=== PATIENT | female | born 2000 | race Caucasian/White ===

== ENCOUNTER 2019-08-04 09:57 | Emergency (ER) | payer OTHER, SELFPAY ==
[2019-08-04] VITALS (15 sets, daily range): BP systolic 100–114; BP diastolic 73–89; PULSE 69–90; RESP 12–21; TEMP 36.7; O2SAT 94–100
--- NOTE | ~2019-08-04 | XR_ITS ---
EXAMINATION: XR chest 2V EXAM DATE: 08/04/2019 10:53 INDICATION: Syncope. TECHNIQUE: Frontal and lateral projections of the chest obtained and reviewed. There is no prior hever dy for comparison. FINDINGS: The lungs are clear. There are no pleural effusions. The cardiomediastinal silhouette is within normal limits. There is no pneumothorax suspected. The bones and soft tissues are unremarkab le. IMPRESSION: No acute cardiopulmonary findings. Reviewed, dictated and finalized at location B.
--- NOTE | ~2019-08-04 | US_ITS ---
EXAMINATION: US venous doppler LE RT DATE: 08/04/2019 14:45 INDICATION: Right lower limb pain. Elevated d-dimer. TECHNIQUE: Grayscale ultrasound images without and with compression and Doppler ultrasound images of the right lower extremity veins were obtained. COMPARISON: None. FINDINGS: The visualized portions of right common femoral vein, profunda (deep) femoral vein, femoral vein, pop liteal vein, peroneal trunk, posterior tibial veins, peroneal veins, gastrocnemius vein and greater s aphenous vein outflow are patent. IMPRESSION: 1. No deep venous thrombosis in the right lower limb. Reviewed, dictated and finalized at location A.
--- NOTE | ~2019-08-04 | CT_ITS ---
EXAMINATION: CTA chest PE protocol EXAM DATE: 08/04/2019 12:59 INDICATION: Elevated d-dimer, syncope. TECHNIQUE: Spiral CTA of the chest (pulmonary arteries) was performed with 100 cc Omnipaque 350 intr avenous contrast injection. Images were acquired during the pulmonary arterial phase. Coronal maxi mum intensity projection 3D-reconstructions were created by the technologist on dedicated workstation . Axial, coronal and sagittal reformatted images were reviewed. The dose-length product (DLP) for t his examination was 188.45 mGy-cm. The exposure was tailored according to patient size (auto mA exp osure control), and iterative reconstruction (ASIR) was used as additional dose reduction technique. There is no prior study for comparison. FINDINGS: Pulmonary arteries are well opacified and without intraluminal filling defects. No thora cic aortic dissection. Right basilar granuloma. There are no pleural or pericardial effusions. Tr acheobronchial tree is patent. There is no mediastinal, hilar or axillary lymphadenopathy. There is no pneumothorax. Heart normal in size. No evidence of coronary arterial calcification. Upper abdomen is unremarkable. There is thoracic spondylosis without osteoblastic or osteolytic lesions i dentified. IMPRESSION: 1. Normal CT pulmonary examination. Reviewed, dictated and finalized at location B.
--- NOTE | ~2019-08-04 | CT_ITS ---
EXAMINATION: CT brain wo con EXAM DATE: 08/04/2019 10:45 INDICATION: Syncope, confusion, frontal headache, lethargy. TECHNIQUE: Spiral CT of the head was performed without contrast. Axial, coronal and sagittal images were reviewed. The dose-length product (DLP) for this examination was 605.33 mGy-cm. The exposure w as tailored according to patient size, and iterative reconstruction (ASIR) was used as additional dos e reduction technique. There is no prior study for comparison. FINDINGS: There is no acute intraparenchymal hemorrhage. No evidence of intraparenchymal brain mass lesion. No evidence of acute infarction. There is no mass effect or midline shift. The ventricles are normal in size. There are no extra-axial collections. There are no acute calvarial fractures. T he orbits are unremarkable. Soft tissue is unremarkable. There is minimal ethmoid mucoperiosteal th ickening. IMPRESSION: 1. Unremarkable head CT examination. Reviewed, dictated and finalized at location B.
--- NOTE | 2019-08-04 10:20 | ECG_ITS ---
Measurements Intervals [place] Rate: 83 P: 68 TN: 163 QRS: 47 QRSD: 105 T: 21 QT: 365 QTc: 429 Interpretive Statements SINUS RHYTHM RSR' IN V1 OR V2, CONSIDER RIGHT VENTRICULAR HYPERTROPHY OR RIGHT VCD MINIMAL Q WAVES- HIGH LATERAL LEADS BORDERLINE T WAVE ABNORMALITY- INFERIOR LEADS BORDERLINE ECG Electronically Signed On 08-04-2019 10:28:01 CDT by Tawanda Pope D.O.
--- NOTE | 2019-08-04 10:30 | ED.SYNCOPE ---
HPI - Syncope General Chief Complaint: Syncope <BONNY Germain Last Filed: 08/04/19 14:23> Stated Complaint: near syncope <BONNY Germain Last Filed: 08/04/19 14:23> Time Seen by Provider: 08/04/19 10:09 <Cornelia Eng PA-C - Last Filed: 08/04/19 14:23> Source: patient and family <BONNY Germain Last Filed: 08/04/19 14:23> Mode of arrival: EMS <BONNY Germain Last Filed: 08/04/19 14:23> Limitations: clinical condition <BONNY Germain Last Filed: 08/04/19 14:23> History of Present Illness HPI narrative: This is a 18 year old female that presents to the ER for syncopal episode today. Patient does not remember episode, so mother gives history. Per mom patient was at work. She called her mother noting that she had a headache. Mom was told that patient was confused and then had a syncopal episode. Do not report any seizure-like activity. 911 was called and patient presents via EMS. Currently patient's only complaint is a headache. Mom reports she had a similar episode 6 weeks ago where she had a headache and was confused. This resolved after some vuoc-wxi-frukzof pain medication. Patient denies fever, chest pain, shortness of breath, abdominal pain, vomiting, dysuria. <Cornelia Eng PA-C - Last Filed: 08/04/19 14:23> Related Data Home Medications: Home Medications Medication Instructions Recorded Confirmed escitalopram oxalate mg 08/04/19 norgestimate-ethinyl estradiol tablet 08/04/19 [Sprintec (28)] <BONNY Germain Last Filed: 08/04/19 14:23> Allergies/Adverse Reactions: Allergies Allergy/AdvReac Type Severity Reaction Status Date / Time No Known Allergies Allergy Mild Verified 08/04/19 10:26 <BONNY Germain Last Filed: 08/04/19 14:23> Review of Systems Review of Systems: Narrative: CONSTITUTIONAL: Denies fever CARDIOVASCULAR: Denies chest pain RESPIRATORY: Denies dyspnea. GASTROINTESTINAL: Denies abdominal pain, nausea, vomiting GENITOURINARY: Denies dysuria or hematuria. NEUROLOGIC: Reports headache and weakness. Denies numbness <Cornelia Eng PA-C - Last Filed: 08/04/19 14:23> All systems reviewed & are unremarkable except as noted in HPI and below <Cornelia Eng PA-C - Last Filed: 08/04/19 14:23> PMFSH Past Medical History Medical History: Medical History (Updated 08/04/19 @ 14:19 by Cornelia Eng PA-C) History of anxiety History of depression <Cornelia Eng PA-C - Last Filed: 08/04/19 14:23> Surgical History Surgical History: Surgical History (Updated 08/04/19 @ 10:31 by Cornelia Eng PA-C) History of tonsillectomy <Cornelia Eng PA-C - Last Filed: 08/04/19 14:23> Social History Social History: Social History (Updated 08/04/19 @ 10:31 by Cornelia Eng PA-C) Smoking status: Never smoker Substance use: never Gender identity (if verbalized by the patient): Female <Cornelia Eng PA-C - Last Filed: 08/04/19 14:23> Exam Narrative: Exam Narrative: GENERAL: Drowsy, well-nourished, and in no acute distress. HEAD: Normocephalic, atraumatic. EYES: PERRLA and EOMI. ENT: Nares clear, no rhinorrhea or epistaxis. Mucous membranes moist. Oropharynx without tonsillar hypertrophy exudate or other lesions. Bilateral TMs pearly jamil non-bulging NECK: Supple. No adenopathy or masses. CHEST: Clear to auscultation. No respiratory distress. No wheezes rales or rhonchi HEART: Regular rate and rhythm. No murmur heard. Normal peripheral pulses. ABDOMEN: Soft, nontender, nondistended, normal active bowel sounds. EXTREMITIES: Normal range of motion. No edema. Strength equal in bilateral upper and lower extremities (4/5). Normal [id number] SKIN: Warm, dry, no rash. NEURO: Drowsy. No focal deficits. Oriented x3. Cranial nerves II through XII grossly intact PSYCH: Normal mood and affect <Cornelia Eng PA-C - Last Filed: 08/04/19
--- NOTE | 2019-08-04 10:40 | PC.NURSE ---
pt gone from room, unable to obtain blood
[2019-08-04] MEDS: KETOROLAC 30 MG/ML VIAL (*BKC) IV PUSH (10:59)
[2019-08-04] MEDS: SODIUM CHLORIDE 0.9% IV 1,000 ML 999 ML IV CONT ×2 (10:59→13:42)
[2019-08-04 12:04] LABS: D Dimer 0.58 ug/mL (<0.48)
[2019-08-04 12:07] LABS: Alanine Aminotransferase 17 U/L (4-35); Albumin Level 4.1 g/dL (3.7-5.6); Alkaline Phosphatase 62 U/L (45-116); Aspartate Amino Transferase 20 U/L (14-36); Bilirubin,Total 0.6 mg/dL (0.2-1.3); Blood Urea Nitrogen 9 mg/dL (8-21); Calcium 8.8 mg/dL (8.9-10.7); Carbon Dioxide 23 mmol/L (22-30); Chloride 108 mmol/L (98-107); Estimated Glomerular Filt Rate > 60; Glucose 94 mg/dL (65-105); Potassium 4.1 mmol/L (3.4-5.0); Sodium 137 mmol/L (134-143); Troponin I < 0.012 ng/mL (0.000-0.034)
[2019-08-04 12:07] LABS: Amphetamine Screen Urine Negative (Negative); Barbiturate Screen Urine Negative (Negative); Benzodiazepines Screen Urine Negative (Negative); Cannabinoid Screen Urine Negative (Negative); Cocaine Screen Urine Negative (Negative); Methadone Screen Urine Negative (Negative); Opiate Screen Urine Negative (Negative); Phencyclidine Screen Urine Negative (Negative)
[2019-08-04 12:10] LABS: Add Urine Microscopic? YES; Amorphous Sediment Urine Few; Appearance Urine Clear (Clear); Bacteria Urine Trace /hpf; Bilirubin Urine Negative (Negative); Blood Urine Negative (Negative); Color Urine Yellow (Yellow); Glucose Urine UA Negative (Negative); Ketones Urine Negative (Negative); Leukocyte Esterase Ur Trace LEU/UL (Negative); Mucus Urine Few /lpf; Nitrate Urine Negative (Negative); Protein Urine 1+ mg/dL (Negative); Squamous Epithelial Cell Urine Many /hpf (Few)
[2019-08-04 12:14] LABS: Basophils Absolute Auto 0.1 K/mm3 (0.0-0.1); Basophils Percent Auto 0.7 % (0.2-1.2); Eosinophils Absolute Auto 0.2 K/mm3 (0-0.3); Eosinophils Percent Auto 2.2 % (0-4.4); Hematocrit 40.6 % (37.0-47.0); Hemoglobin 13.4 g/dL (12.0-15.0); Immature Granulocyte Absolute 0.04 K/mm3 (0.00-0.031); Immature Granulocyte Percent A 0.5 % (0-0.5); Lymphocytes Absolute Auto 1.29 K/mm3 (0.9-3.2); Lymphocytes Percent Auto 16.9 % (18.3-44.2); Mean Corpuscular Hemoglobin 28.6 pg (26-34); Mean Corpuscular Volume 86.8 fl (80-100); Mean Platelet Volume 9.9 fl (7.4-10.4); Monocytes Absolute Auto 0.6 K/mm3 (0.1-0.6); Neutrophils Absolute Auto 5.5 K/mm3 (1.3-6.7); Neutrophils Percent Auto 71.7 % (45.5-73.1); Platelet Count Result 258 k/mm3 (150-375); Red Blood Count 4.68 M/mm3 (4.2-5.4); White Blood Count 7.7 K/mm3 (4.5-10.0)
[2019-08-04 12:32] LABS: CRP < 0.5 mg/dL (<1.0)
[2019-08-04 13:38] LABS: Erythrocyte Sedimentation Rate 11 mm/hr (0-20)
== END 2019-08-04 15:15 | disposition home or self-care (01) ==
PROVIDERS: Physician Assistant; Emergency Provider Emergency Medicine; PCP Pediatrics
DX: R55 Syncope and collapse (principal); G43.109 Migraine with aura, not intractable, without status migrainosus; F41.9 Anxiety disorder, unspecified; F32.9 Major depressive disorder, single episode, unspecified
CPT/HCPCS: 36415; 70450; 71046; 71275; 80053; 80307; 81001; 81025; 84484; 85025; 85380; 85652; 86140; 87086; 87088; 93005; 93971; 96361; 96374; 96375; 99284; J0131; J1885; J7030; Q9967

== ENCOUNTER 2019-09-30 13:16 | Emergency (ER) | payer OTHER, SELFPAY ==
[2019-09-30 13:21] VITALS: BP 119/69; PULSE 85; RESP 12; TEMP 36.8; O2SAT 98
--- NOTE | 2019-09-30 13:29 | ED.URI ---
HPI - URI/Sore Throat General Chief Complaint: Upper Respiratory Infection Stated Complaint: runny nose/sore throat Time Seen by Provider: 09/30/19 13:30 Source: patient and RN notes reviewed Mode of arrival: ambulatory Limitations: no limitations History of Present Illness HPI Narrative: 19-year-old female presents with concern for rhinorrhea, nasal congestion, sore throat, headache. Reports a fever of 100.4 yesterday, chills. Reports other symptoms started 2 days ago. Reports 1 episode of vomiting yesterday. Reports history of seasonal allergies, she began taking Kari-D when symptoms started. Reports occasional cough, denies shortness of breath, body aches. MD elicited complaint: rhinorrhea Related Data Home Medications Medication Instructions Recorded Confirmed escitalopram oxalate mg 08/04/19 norgestimate-ethinyl estradiol tablet 08/04/19 [Sprintec (28)] Allergies Allergy/AdvReac Type Severity Reaction Status Date / Time No Known Allergies Allergy Mild Verified 08/04/19 10:26 Review of Systems Review of Systems: Narrative: CONSTITUTIONAL: Denies malaise, sweats. Reports fever. EYES: Denies visual changes, redness, or discharge. ENT: Reports rhinorrhea, congestion, sinus pain sore throat. Denies otalgia. CARDIOVASCULAR: Denies chest pain, palpitations, or edema. RESPIRATORY: Reports cough. Denies dyspnea. GASTROINTESTINAL: Denies abdominal pain, nausea, vomiting, diarrhea SKIN: Denies rash or itching. MUSCULOSKELETAL: Denies myalgia. NEUROLOGIC: Reports headache. All systems reviewed & are unremarkable except as noted in HPI and below PMFSH Past Medical History Medical History (Updated 09/30/19 @ 13:43 by Beena Sullivan NP) History of anxiety History of depression Surgical History Surgical History (Updated 08/04/19 @ 10:31 by Cornelia Eng PA-C) History of tonsillectomy Social History Social History (Updated 08/04/19 @ 10:31 by Cornelia Eng PA-C) Smoking status: Never smoker Substance use: never Gender identity (if verbalized by the patient): Female Comments At time of signature, agree with nursing past medical, surgical, social and family history. There is no relevant family history pertinent to the presenting complaint Exam Narrative: Exam Narrative: GENERAL: Well-appearing, well-nourished, and in no acute distress. HEAD: Normocephalic EYES: PERRLA, conjunctivae clear ENT: Nares clear, turbinates edematous and erythematous, clear discharge. Mucous membranes moist. TM pearly jamil with dull light reflex bilaterally; no tragal tenderness. Oropharynx not erythematous without lesions. Tonsils not enlarged and without exudate, no drooling, no hoarseness, no trismus, uvula midline. NECK: Supple. No lymphadenopathy CHEST: Clear to auscultation, breath sounds equal. No wheezing, rhonchi, rales, or stridor. No respiratory distress, speaks in full sentences. HEART: Regular rate and rhythm. No murmur heard. SKIN: Warm, dry, no rash. NEURO: Alert and oriented x3. PSYCH: Normal mood and affect Course Course Emergency Course: Patient is aware of diagnosis, understands and agrees to treatment plan. Anticipatory guidance given. Patient agrees to follow-up as directed and is aware of reasons to seek care at the emergency department. Portions of this record may have been created with voice recognition software Vital Signs Vital signs: Vital Signs Temperature 98.2 F 09/30/19 13:21 Pulse Rate 85 09/30/19 13:21 Respiratory Rate 12 09/30/19 13:21 Blood Pressure 119/69 09/30/19 13:21 Pulse Oximetry 98 09/30/19 13:21 Temperature 98.2 F 09/30/19 13:21 Pulse Rate 85 09/30/19 13:21 Respiratory Rate 12 09/30/19 13:21 Blood Pressure 119/69 09/30/19 13:21 Pulse Oximetry 98 09/30/19 13:21 Reviewed. MDM - URI/Sore Throat MDM Narrative Medical decision making narrative: Differential diagnosis considered: Stallings virus, strep pharyngitis, allergic rhini
== END 2019-09-30 13:50 | disposition home or self-care (01) ==
PROVIDERS: Emergency Provider Nurse Practitioner; PCP Pediatrics
DX: J06.9 Acute upper respiratory infection, unspecified (principal); F41.9 Anxiety disorder, unspecified; F32.9 Major depressive disorder, single episode, unspecified
CPT/HCPCS: 87081; 87880; 99213; G0463

== ENCOUNTER 2020-03-18 12:14 | Emergency (ER) | payer OTHER, SELFPAY ==
--- NOTE | 2020-03-18 12:18 | ED.SKABFB ---
HPI - Skin/Abscess/Foreign Bdy General Chief complaint: Skin/Abscess/Foreign Body Stated complaint: rash Time Seen by Provider: 03/18/20 12:18 Source: patient and RN notes reviewed Mode of arrival: ambulatory Limitations: no limitations History of Present Illness HPI narrative: 19-year-old female presents to [facility] with complaints of a rash. rash is to the back. Patient denies any new creams, ointments, lotions or detergents. No new close. No new foods. Rash started on . States that she was at the casing fin[facility] stuff[facility] on Wednesday and received a shot. Patient receives she receives shots because she is allergic to mold. Call the casing finisher and stuffer and was told that is not shot. Patient has no lip swelling. No shortness of breath. States it mildly itches. States it started on the right lower abdomen and has since spread. Has tried taking Benadryl with no relief. Related Data Home Medications Medication Instructions Recorded Confirmed escitalopram oxalate 20 mg PO DAILY 08/04/19 03/18/20 norgestimate-ethinyl estradiol 1 tablet PO DAILY 08/04/19 03/18/20 [Sprintec (28)] Allergies Allergy/AdvReac Type Severity Reaction Status Date / Time No Known Allergies Allergy Mild Verified 03/18/20 12:24 Review of Systems Review of Systems: Narrative: CONSTITUTIONAL: Denies fever, chills, or sweats. EYES: Denies visual changes, redness, or discharge. ENT: Denies rhinorrhea, congestion, sore throat, or otalgia. No lip swelling or airway swelling CARDIOVASCULAR: Denies chest pain, palpitations, or edema. RESPIRATORY: Denies cough or dyspnea. GASTROINTESTINAL: Denies abdominal pain, nausea, vomiting, or diarrhea. GENITOURINARY: Denies dysuria or hematuria. SKIN: Reports rash or itching. MUSCULOSKELETAL: Denies back pain, joint pain, or myalgia. NEUROLOGIC: Denies headache, numbness, or weakness. PSYCHIATRIC: Denies anxiety or depression. All other systems reviewed are negative, except as documented in HPI. [facility] Past Medical History Medical History History of anxiety History of depression Surgical History Surgical History History of tonsillectomy Social History Social History Smoking status: Never smoker Substance use: never Gender identity (if verbalized by the patient): Female Comments At the time of my signature, I reviewed and agree with the nursing past medical, surgical, social, and family history. There is no relevant family history pertinent to the patient complaint. Exam Narrative: Exam Narrative: GENERAL: This is a well-nourished, well-developed patient, in no apparent distress. HEAD: normocephalic, atraumatic. EYES: PERRL. Sclera clear/white. Vision is grossly intact. EARS: External ears normal, auditory canals clear and without drainage, TMs normal without perforation. Hearing grossly intact. NOSE: External nose normal with no obvious nasal discharge, nares without redness, no rhinorrhea. THROAT: Mucous membranes moist, posterior pharynx clear. NECK: Neck supple, non-tender without lymphadenopathy, masses or thyromegaly. CARDIOVASCULAR: Regular rate and rhythm without murmurs, gallops, or rubs. RESPIRATORY: Clear to auscultation. Breath sounds equal bilaterally. No wheezes, rales, or rhonchi. GASTROINTESTINAL: Abdomen soft, non-tender, nondistended. Bowel sounds are active. No hepato-splenomegaly, or palpable masses. No guarding. SKIN: warm, intact. Red, raised, dry rash to her torso. has good texture and turgor. NEURO: awake, alert, and oriented to person, place and time. There were no obvious focal neurologic abnormalities. EXTREMITIES: No clubbing, cyanosis, or edema. No joint tenderness, effusion, or edema noted. Skin: Rashes: rashes noted Hair: normal Nails: normal Course Vital Signs Vital signs: Vital Signs Temperature 97.9 F 03/18/20 12:19 Pul
[2020-03-18 12:19] VITALS: BP 114/72; PULSE 81; RESP 16; TEMP 36.6; O2SAT 98
== END 2020-03-18 12:34 | disposition home or self-care (01) ==
PROVIDERS: Emergency Provider Nurse Practitioner; PCP Pediatrics
DX: L25.9 Unspecified contact dermatitis, unspecified cause (principal); F41.9 Anxiety disorder, unspecified; F32.9 Major depressive disorder, single episode, unspecified
CPT/HCPCS: 99213; G0463

== ENCOUNTER 2022-03-31 18:30 | Emergency (ER) | payer OTHER, SELFPAY ==
--- NOTE | 2022-03-31 18:32 | ED.DIZZY ---
HPI - Dizziness General Stated Complaint: Dizziness,Blurry Vision Time Seen by Provider: 03/31/22 18:31 Source: patient Mode of arrival: ambulatory Limitations: no limitations History of Present Illness HPI Narrative: Kristin is a 21-year-old female patient presenting to the clinic today with complaints of of dizziness and blurry vision that began around 1:30 p.m. today. States this happened twice today. She began getting a headache due to a white board cleaner window smell in the classroom so she went to the restroom and had a small bowel movement and felt somewhat better. She then came back into the classroom and developed some blurry vision with tunnel vision and some palpitations. Reports she felt as though she was becoming anxious due to her symptoms and felt as though she was going to pass out. Reports that EMS was contacted and they did an EKG and stated it was normal and they also checked her blood sugar and now was normal. She has eaten a bagel for breakfast and lunch today and she drank an energy drink during breakfast and water this afternoon. History of migraine headaches and has had near syncopal episodes before when having migraines. Last menstrual period was last week-denies having heavy menses. No history of diabetes, anemia, or cardiac issues. She denied any shortness of breath during these episodes. She declined EMS transport to the hospital and decided to come in to the [facility] today. 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 She reports that the dizziness and blurred vision has improved. States when she became more anxious she began to breathe and deep and started to be come tingly all over. Related Data Home Medications Medication Instructions Recorded Confirmed No Home Medications 03/31/22 03/31/22 Allergies Allergy/AdvReac Type Severity Reaction Status Date / Time No Known Allergies Allergy Mild Verified 03/31/22 18:45 Review of Systems Review of Systems: Pertinent positives per HPI. Patient denies any fever, chills, rash,cough, runny nose, sore throat, shortness of breath, chest pain, nausea, vomiting, diarrhea, constipation, abdominal pain, or any urinary issues. [facility] Past Medical History Medical History History of anxiety History of depression Surgical History Surgical History History of tonsillectomy Social History Social History Smoking status: Never smoker Substance use: never Gender identity (if verbalized by the patient): Female Comments At the time of my signature, I reviewed and agree with the nursing past medical, surgical, social, and family history. There is no relevant family history pertinent to the patient complaint. Exam Narrative: General: Well-developed, well nourished, in no apparent distress Head: Normocephalic, atraumatic Eyes: Pupils equally round and reactive to light bilaterally, EOM intact, sclera and conjunctive clear, no discharge, lids normal Ears: TMs intact and clear, ear canals clear, no drainage, grossly hearing normal. Nose: Nares patent, no discharge, no inflammation, no sinus tenderness. Mouth: Oropharynx without lesions or masses, good dentition, MMM. Tongue midline, even rise and fall of uvula Neck: Supple, trachea midline, no enlargement of anterior or posterior cervical nodes, no thyroid masses or goiter palpable. Cardio: Regular rate and rhythm, s1 and s2 normal, no murmur appreciated. Resp: Clear to auscultation bilaterally anteriorly and posteriorly, no rhonchi, rales, wheezing or rubs Musculoskeletal: No deformity, non-tender to palpation, grossly normal range of motion, muscle strength strong and equal, peripheral pulse strong, no edema, no cyanosis, normal gait and station Neuro: Alert and oriented x4 with normal speech, no focal deficits, cranial nerves I through XI
[2022-03-31 18:41] VITALS: BP 122/75; PULSE 79; RESP 18; TEMP 36.4; O2SAT 99
--- NOTE | 2022-03-31 18:52 | ECG_ITS ---
Measurements Intervals [place] Rate: 68 P: 59 IA: 179 QRS: 65 QRSD: 94 T: 31 QT: 374 QTc: 398 Interpretive Statements SINUS RHYTHM WITH SINUS ARRHYTHMIA OTHERWISE NORMAL ECG COMPARED TO ECG 08/04/2019 10:01:59 SINUS ARRHYTHMIA NOW PRESENT Electronically Signed On 04-01-2022 13:38:45 [employer]ASS [employer] BLANKET MACHINE FEEDER by Pierre Gasca M.D.
[2022-03-31 19:14] LABS: Glucose Point of Care 91 mg/dl (65-105)
[2022-03-31 19:18] VITALS: BP 107/67; BP 115/81; PULSE 107; PULSE 78
[2022-03-31 19:19] VITALS: BP 115/81; PULSE 110
== END 2022-03-31 19:32 | disposition home or self-care (01) ==
PROVIDERS: Emergency Provider Nurse Practitioner Family; PCP Family Medicine
DX: R55 Syncope and collapse (principal); R06.4 Hyperventilation
CPT/HCPCS: 81003; 81025; 82948; 87086; 87088; 93005; 99213; G0463

== ENCOUNTER 2022-04-16 11:30 | Outpatient (CLI) | payer OTHER, SELFPAY ==
--- NOTE | ~2022-04-16 | CT_ITS ---
Non-contrast Head CT History: Headache COMPARISON: 08/04/2019 Technique: Axial non-contrast imaging of the brain was performed. Dose reduction technique was used on this scan by utilizing automated exposure control and iterative reconstruction technique. The dose -length product (DLP) was 605.33 mGy-cm. Findings: There is no evidence of intracranial hemorrhage, mass lesion, or acute infarct. Brain par enchyma appears normal. The ventricles and subarachnoid spaces are normal in size. The calvarium ap pears normal. The visualized paranasal sinuses and mastoid air cells are clear. Impression: No significant abnormality seen. Reviewed, dictated and finalized at [facility]. [employer]ERED DIET TECHNICIAN Impression: No significant abnormality seen.
== END 2022-04-16 11:31 | disposition home or self-care (01) ==
PROVIDERS: PCP Family Medicine; Visit Provider Physician Assistant
DX: R51.9 Headache, unspecified (principal)
CPT/HCPCS: 70450